=== PATIENT | female | born 1980 | race African-American/Black ===

== ENCOUNTER 2016-12-16 21:05 | Emergency (ER) | payer SELFPAY ==
[~2016-12-16] VITALS: Ht 162.6 cm; Wt 59.0 kg
[2016-12-16 21:15] VITALS: BP 114/78
--- NOTE | 2016-12-16 21:57 | PHYS DOC ---
Past Medical History Past Medical History: Other Additional Past Medical Histor: SCOLIOSIS Past Surgical History: No Surgical History, , Other Additional Past Surgical Histo: BACK Alcohol Use: Occasionally Drug Use: None Adult General Chief Complaint Chief Complaint: ABDOMINAL PAIN [facility] HPI Patient is a 36 year old female comes to emergency department stating that she has had 5-6 weeks of feeling like she is been bloated with urinary frequency. Patient states that she has not had a menstrual cycle since October. She states that she's had a tubal ligation. She continues to state that she has had some nausea with one episode of vomiting today. She had a normal bowel movement yesterday. She denies any history of constipation. Patient continues to state that she took 2 test at home which were negative. Patient denies vaginal discharge. Review of Systems Review of Systems Constitutional: Denies fever or chills [] Eyes: Denies change in visual acuity, redness, or eye pain [] HENT: Denies nasal congestion or sore throat [] Respiratory: Denies cough or shortness of breath [] Cardiovascular: No additional information not addressed in HPI [] GI: lower abdominal cramping, nausea, vomiting, denies bloody stools or diarrhea [] : Denies dysuria or hematuria [] Musculoskeletal: Denies back pain or joint pain [] Integument: Denies rash or skin lesions [] Neurologic: Denies headache, focal weakness or sensory changes [] Endocrine: Denies polyuria or polydipsia [] Allergies Allergies Allergies Coded Allergies Type Severity Reaction Last Updated Verified No Known Drug Allergies 02/08/16 No Physical Exam Physical Exam Constitutional: Well developed, well nourished, no acute distress, non-toxic appearance. [] HENT: Normocephalic, atraumatic, bilateral external ears normal, oropharynx moist, no oral exudates, nose normal. [] Eyes: PERRLA, EOMI, conjunctiva normal, no discharge. [] Neck: Normal range of motion, no tenderness, supple, no stridor. [] Cardiovascular:Heart rate regular rhythm, no murmur [] Lungs & Thorax: Bilateral breath sounds clear to auscultation [] Abdomen: Bowel sounds hypoactive, soft, no tenderness, no masses, no pulsatile masses. [] Skin: Warm, dry, no erythema, no rash. [] Back: No tenderness Extremities: No tenderness, no cyanosis, no clubbing, ROM intact, no edema. [] Neurologic: Alert and oriented X 3, normal motor function, normal sensory function, no focal deficits noted. [] Psychologic: Affect normal, judgement normal, mood normal. [] Current Patient Data Vital Signs Vital Signs Date Time Temp Pulse Resp B/P (MAP) Pulse Ox O2 Delivery O2 Flow Rate FiO2 12/16/16 21:15 98.3 86 18 114/78 (90) 100 Room Air 98.3 Lab Values Laboratory Tests Test 12/16/16 21:30 Urine Collection Type Unknown Urine Color Yellow Urine Clarity Clear Urine pH 5.5 Urine Specific [place] 1.015 Urine Protein Negative mg/dL (NEG-TRACE) Urine Glucose (UA) Negative mg/dL (NEG) Urine Ketones (Stick) Negative mg/dL (NEG) Urine Blood Negative (NEG) Urine Nitrite Negative (NEG) Urine Bilirubin Negative (NEG) Urine Urobilinogen Dipstick 0.2 mg/dL (0.2 mg/dL) Urine Leukocyte Esterase Trace (NEG) Urine RBC 0 /HPF (0-2) Urine WBC 1-4 /HPF (0-4) Urine Squamous Epithelial Cells Mod /LPF Urine Bacteria Moderate /HPF (0-FEW) Urine Mucus Mod /LPF EKG EKG [] Radiology/Procedures Radiology/Procedures [] Course & Med Decision Making Course & Med Decision Making Pertinent Labs and Imaging studies reviewed. (See chart for details) test was negative, urine was positive for urinary tract infection. Patient will be placed on Macrobid for the next 7 days. Recommended plenty of fluids such as water and cranberry juice. Also recommended to avoid cranberry juice cocktail, carbonated beverages, citrus fruits, alcohol and caffeine as these are considered irritants to the bladder. Recommended patient to use Tylenol or ibuprofen for pain and discomfort. Patient agrees with discharge instructions treatment regimens and follow-up recommendations recommended her to follow up in the next 7-10 days with primary care physician and make sure she had a urinary tract infection. Signs and symptoms to return back to emergency department as been provided. [] Dragon Disclaimer Dragon Disclaimer This electronic medical record was generated, in whole or in part, using a voice recognition dictation system. Departure Departure Impression: Primary Impression: UTI (urinary tract infection) Disposition: HOME, SELF-CARE Condition: STABLE Referrals: NO PCP (PCP) Patient Instructions: Urinary Tract Infection, [id number] Additional Instructions: test was negative. Urine was positive for urinary tract infection. Drink plenty of water and cranberry juice. Avoid cranberry juice cocktail, carbonated beverages, caffeine, alcohol, citrus fruits as these are considered irritants to the bladder. Medication as prescribed. Follow-up with her primary care physician in the next 7-10 days to make sure you cleared the infection. Return back to emergency department sign symptoms of become worse. Scripts Nitrofurantoin Monohyd/M-Cryst (MACROBID 100 MG CAPSULE) 100 Mg Capsule 1 CAP PO BID, #[id number] CAP Prov: NIKUNJ CALLAWAY APRN 12/16/16 NIKUNJ CALLAWAY APRN Dec 16, 2016 21:57
[2016-12-16 22:14] LABS: BILIRUBIN,URINE NEGATIVE (NEG); GLUCOSE,URINE NEGATIVE (NEG); NITRITE,URINE NEGATIVE (NEG); PH,URINE 5.5; PROTEIN,URINE NEGATIVE (NEG-TRACE); UROBILINOGEN,URINE 0.2 mg/dL (0.2 mg/dL)
[2016-12-16 22:25] LABS: BACTERIA,URINE MODERATE /HPF (0-FEW); RBC,URINE 0 /HPF (0-2); SQUAMOUS EPITHELIAL CELL,UR MOD /LPF
[2016-12-16] MEDS ORDERED: NITR100C62 PO (22:35)
== END 2016-12-16 22:45 | disposition home or self-care (01) ==
LOC: ER 21:05
DX: N39.0 Urinary tract infection, site not specified (principal); Z98.890 Other specified postprocedural states
CPT/HCPCS: 81001; 81025; 87086; 87186; 99284

== ENCOUNTER 2017-08-08 20:28 | Emergency (ER) | payer SELFPAY | END 2017-08-08 21:02 | disposition home or self-care (01) | LOC: ER 20:28 | DX: K08.89 Other specified disorders of teeth and supporting structures (principal); M41.9 Scoliosis, unspecified | CPT/HCPCS: 99283 ==